=== PATIENT | female | born 1960 | race Caucasian/White ===

== ENCOUNTER 2017-05-17 12:21 | Emergency (ER) | payer BC ==
[2017-05-17 13:32] LABS: COLOR YELLOW; LEUKOCYTE ESTERASE,URINE NEGATIVE (NEGATIVE); NITRITE,URINE NEGATIVE (NEGATIVE)
[2017-05-17] MEDS ORDERED: NS 1,000 ML IV ONE (13:40)
--- NOTE | 2017-05-17 13:45 | EDPHY ---
H & P Stated Complaint: dx uti/tx macrobid and now cipro suprapubic pain/abnl vag bleeding Time Seen by Provider: 05/17/17 13:23 HPI/ROS: CHIEF COMPLAINT: Suprapubic pressure HISTORY OF PRESENT ILLNESS: Patient is a 57-year-old perimenopausal female who comes to the emergency department complaining of suprapubic pressure. She states that she began to have this sensation a week ago on Saturday when she was in [place]. She was seen at a clinic there and had a negative urinalysis other than a small amount of blood possibly contaminated from her intermittent vaginal bleeding that she thinks is part of menopause. At that time she had frequency and dysuria. She was started on Macrobid but states that her symptoms did not improve. She was seen at an urgent care in [place] on Saturday with similar symptoms and had another negative urinalysis but was switched to ciprofloxacin because her urine was "dark and smelly". She states that her dysuria and frequency have resolved but she continues to have suprapubic pressure. She saw her primary today. She has a known history of fibroids. Her primary did a pelvic exam and remarked that it was normal. Urinalysis was normal and test was normal. She is sent her for an outpatient ultrasound which could not be schedule until next week so the patient checked into the emergency department. She has not had a fever. No vomiting or diarrhea. She denies risk for STDs and states that she has been monogamous for 20 years. REVIEW OF SYSTEMS: Constitutional: denies: chills, fever, recent illness, recent injury EENTM: denies: blurred vision, double vision, nose congestion Respiratory: denies: cough, shortness of breath Cardiac: denies: chest pain, irregular heart rate, lightheadedness, palpitations Gastrointestinal/Abdominal: See HPI Genitourinary: See HPI Musculoskeletal: denies: joint pain, muscle pain Skin: denies: lesions, rash, jaundice, bruising Neurological: denies: headache, numbness, paresthesia, tingling, dizziness, weakness Hematologic/Lymphatic: denies: blood clots, easy bleeding, easy bruising Immunologic/allergic: denies: HIV/AIDS, transplant EXAM: GENERAL: Well-appearing, well-nourished and in no acute distress. HEAD: Atraumatic, normocephalic. EYES: Pupils equal round and reactive to light, extraocular movements intact, sclera anicteric, conjunctiva are normal. ENT: TMs normal, nares patent, oropharynx clear without exudates. Moist mucous membranes. NECK: Normal range of motion, supple without lymphadenopathy or JVD. LUNGS: Breath sounds clear to auscultation bilaterally and equal. No wheezes rales or rhonchi. HEART: Regular rate and rhythm without murmurs, rubs or gallops. ABDOMEN: Slight left lower quadrant and suprapubic tenderness, no organomegaly BACK: No CVA tenderness, no spinal tenderness, step-offs or deformities EXTREMITIES: Normal range of motion, no pitting or edema. No clubbing or cyanosis. NEUROLOGICAL: Cranial nerves II through XII grossly intact. Normal speech, normal gait. 5/5 strength, normal movement in all extremities, normal sensation PSYCH: Normal mood, normal affect. SKIN: Warm, dry, normal turgor, no visible rashes or lesions. Source: Patient Exam Limitations: No limitations - Personal History Current Tetanus/Diphtheria Vaccine: Unsure - Medical/Surgical History Hx Asthma: No Hx Chronic Respiratory Disease: No Hx Diabetes: No Hx Cardiac Disease: No Hx Renal Disease: No Hx Cirrhosis: No Hx Alcoholism: No Hx HIV/AIDS: No Hx Splenectomy or Spleen Trauma: No Other PMH: PMH: chronic back pain, depression; CDIFF; genital herpies; clamidia; . PSH: back [id number]; back fusion L5S1; appy; R ACL; - Family History Significant Family History: No pertinent family hx - Social History Smoking Status: Former smoker Alcohol Use: Sober Drug Use: None Constitutional: Initial Vital Signs Temperature (C) 36.9 C 05/17/17 12:47 Heart Rate 77 05/17/17 12:47 Respiratory Rate 18 05/17/17 12:47 Blood Pressure 108/72 05/17/17 12:47 O2 Sat (%) 96 05/17/17 12:47 O2 Delivery Mode Room Air Allergies/Adverse Reactions: Penicillins Allergy (Intermediate, Verified 05/17/17 12:44) Rash Sulfa (Sulfonamide Antibiotics) Allergy (Intermediate, Verified 05/17/17 12:44) eyes swell codeine [Codeine] Allergy (Mild, Verified 05/17/17 12:44) GI upset Home Medications: Medication Instructions Recorded OXYCODONE HCL 10 mg PO 02/18/14 Cipro 10/17/15 Omeprazole 10/17/15 Prozac 10 MG (*) 05/17/17 Medical Decision Making - Diagnostics Imaging Results: Imaging Impressions Pelvic/Renal Ultrasound 05/17/17 13:45 Impression: 1. Stable to minimal increase in size of left anterior subserosal uterine fibroid. 2. Mildly thickened endometrial stripe measuring about 15 mm without focal normality. This can be seen with endometrial hyperplasia or polyps. 3. No adnexal masses are appreciated. However, the ovaries were not positively identified. Findings discussed with August Lopez M.D. at 15:50 hour, 05/17/2017. Imaging: Discussed imaging studies w/ order caller Radiologist ED Course/Re-evaluation: After much discussion we agreed to order a ultrasound within a CT scan. We discussed the risks and benefits.. Will also obtain a clean catheter obtained urine sample and blood work. The patient declines pelvic exam stating that she just had 1 and is not concerned about STDs. 4:10 p.m. we discussed the ultrasound and lab results which are reassuring. The patient elected not to have a CT scan. Her abdominal exam is benign. I have paged her primary Dr. Tim to discuss. Patient would like to go home and follow up with them on Saturday. We discussed indications for returning sooner. 4:20 p.m. I discussed the case with Dorothy the nurse's Dr. Tim's office who will relay the information to Dr. Tim and ensure early follow-up. Differential Diagnosis: Partial list of the Differential diagnosis considered include but were not limited to; urinary tract infection, fibroid dysmetria , and although unlikely based on the history and physical exam, I also considered kidney stone, STD, diverticulitis, obstruction ischemia, volvulus. I discussed these differential diagnoses and the plan with the patient as well as the usual and expected course. The patient understands that the diagnosis is provisional and that in medicine we are not always correct and that further workup is often warranted. Usual and customary warnings were given. All of the patient's questions were answered. The patient was instructed to return to the emergency department should the symptoms at all worsen or return, otherwise to followup with the physician as we discussed. - Data Points Laboratory Results: Laboratory Results 05/17/17 15:20 05/17/17 15:20 05/17/17 05/17/17 05/17/17 15:20 15:20 15:20 WBC 7.84 10^3/uL 10^3/uL (3.80-9.50) RBC 4.13 10^6/uL L 10^6/uL (4.18-5.33) Hgb 13.7 g/dL g/dL (12.6-16.3) Hct 40.5 % % (38.0-47.0) MCV 98.1 fL fL (81.5-99.8) MCH 33.2 pg pg (27.9-34.1) MCHC 33.8 g/dL g/dL (32.4-36.7) RDW 12.8 % % (11.5-15.2) Plt Count 230 10^3/uL 10^3/uL (150-400) MPV 10.0 fL fL (8.7-11.7) Neut % (Auto) 79.7 % H % (39.3-74.2) Lymph % (Auto) 15.1 % % (15.0-45.0) [place] % (Auto) 4.2 % L % (4.5-13.0) Eos % (Auto) 0.3 % L % (0.6-7.6) Baso % (Auto) 0.4 % % (0.3-1.7) Nucleat RBC Rel Count 0.0 % % (0.0-0.2) Absolute Neuts (auto) 6.26 10^3/uL 10^3/uL (1.70-6.50) Absolute Lymphs (auto) 1.18 10^3/uL 10^3/uL (1.00-3.00) Absolute Monos (auto) 0.33 10^3/uL 10^3/uL (0.30-0.80) Absolute Eos (auto) 0.02 10^3/uL L 10^3/uL (0.03-0.40) Absolute Basos (auto) 0.03 10^3/uL 10^3/uL (0.02-0.10) Absolute Nucleated RBC 0.00 10^3/uL 10^3/uL (0-0.01) Immature Gran % 0.3 % % (0.0-1.1) Immature Gran # 0.02 10^3/uL 10^3/uL (0.00-0.10) Sodium 140 mEq/L mEq/L (134-144) Potassium 3.8 mEq/L mEq/L (3.5-5.2) Chloride 106 mEq/L mEq/L (97-110) Carbon Dioxide 23 mEq/l mEq/l (22-31) Anion Gap 11 mEq/L mEq/L (8-16) BUN 14 mg/dL mg/dL (7-23) Creatinine 0.7 mg/dL mg/dL (0.6-1.0) Estimated GFR > 60 Glucose 92 mg/dL mg/dL (70-100) Calcium 9.4 mg/dL mg/dL (8.5-10.4) Total Bilirubin 1.5 mg/dL H mg/dL (0.1-1.4) Conjugated Bilirubin 0.1 mg/dL mg/dL (0.0-0.5) Unconjugated Bilirubin 1.4 mg/dL H mg/dL (0.0-1.1) AST 21 IU/L IU/L (14-46) ALT 21 IU/L IU/L (9-52) Alkaline Phosphatase 35 IU/L L IU/L (38-126) Total Protein 6.8 g/dL g/dL (6.3-8.2) Albumin 3.8 g/dL g/dL (3.5-5.0) Lipase 30.0 IU/L IU/L (23-300) Beta HCG, Qual NEGATIVE Urine Color Urine Appearance Urine pH Ur Specific [place] Urine Protein Urine Ketones Urine Blood Urine Nitrate Urine Bilirubin Urine Urobilinogen Ur Leukocyte Esterase Urine RBC Urine WBC Ur Epithelial Cells Urine Mucus Urine Glucose 05/17/17 05/17/17 14:20 13:25 WBC RBC Hgb Hct MCV MCH MCHC RDW Plt Count MPV Neut % (Auto) Lymph % (Auto) [place] % (Auto) Eos % (Auto) Baso % (Auto) Nucleat RBC Rel Count Absolute Neuts (auto) Absolute Lymphs (auto) Absolute Monos (auto) Absolute Eos (auto) Absolute Basos (auto) Absolute Nucleated RBC Immature Gran % Immature Gran # Sodium Potassium Chloride Carbon Dioxide Anion Gap BUN Creatinine Estimated GFR Glucose Calcium Total Bilirubin Conjugated Bilirubin Unconjugated Bilirubin AST ALT Alkaline Phosphatase Total Protein Albumin Lipase Beta HCG, Qual Urine Color PALE YELLOW YELLOW Urine Appearance CLEAR HAZY Urine pH 7.0 5.0 (5.0-7.5) (5.0-7.5) Ur Specific [place] 1.003 1.021 (1.002-1.030) (1.002-1.030) Urine Protein NEGATIVE NEGATIVE (NEGATIVE) (NEGATIVE) Urine Ketones NEGATIVE 1+ H (NEGATIVE) (NEGATIVE) Urine Blood NEGATIVE NEGATIVE (NEGATIVE) (NEGATIVE) Urine Nitrate NEGATIVE NEGATIVE (NEGATIVE) (NEGATIVE) Urine Bilirubin NEGATIVE NEGATIVE (NEGATIVE) (NEGATIVE) Urine Urobilinogen NEGATIVE EU EU NEGATIVE EU EU (0.2-1.0) (0.2-1.0) Ur Leukocyte Esterase NEGATIVE NEGATIVE (NEGATIVE) (NEGATIVE) Urine RBC NONE SEEN /hpf /hpf (0-3) Urine WBC 1-3 /hpf /hpf (0-3) Ur Epithelial Cells TRACE /lpf /lpf (NONE-1+) Urine Mucus 4+ /lpf H /lpf (NONE-1+) Urine Glucose NEGATIVE NEGATIVE (NEGATIVE) (NEGATIVE) Medications Given: Discontinued Medications Sodium Chloride (Ns) 1,000 mls @ 0 mls/hr IV EDNOW ONE; Wide Open PRN Reason: Protocol Stop: 05/17/17 13:41 Last Admin: 05/17/17 15:15 Dose: 1,000 mls Ketorolac Tromethamine (Toradol) 30 mg IVP EDNOW ONE Stop: 05/17/17 15:25 Last Admin: 05/17/17 15:30 Dose: 30 mg Ondansetron HCl (Zofran) 4 mg IVP EDNOW ONE Stop: 05/17/17 15:25 Last Admin: 05/17/17 15:30 Dose: 4 mg Departure - Departure Disposition: Home, Routine, Self-Care Clinical Impression: Pelvic pain Condition: Fair Instructions: Pelvic Pain (ED) Referrals: Roseanne Tim MD [Primary Care Provider] - As per Instructions
[2017-05-17 14:45] LABS: MUCUS 4+ /lpf (NONE-1+); RBC,URINE NONE SEEN /hpf (0-3)
[2017-05-17 15:01] LABS: COLOR PALE YELLOW; LEUKOCYTE ESTERASE,URINE NEGATIVE (NEGATIVE); NITRITE,URINE NEGATIVE (NEGATIVE)
[2017-05-17] MEDS ORDERED: KETOROLAC 30 MG/1 ML SDV IVP ONE (15:24)
[2017-05-17] MEDS ORDERED: ONDANSETRON 4 MG/2 ML VIAL IVP ONE (15:24)
[2017-05-17 15:27] LABS: % IMMATURE GRANULYOCYTES 0.3 % (0.0-1.1); ABSOLUTE IMMATURE GRANULOCYTES 0.02 10^3/uL (0.00-0.10); ADD DIFF? NO; ADD MORPH? NO; ADD SCAN? NO; ATYPICAL LYMPHOCYTE FLAG 10 (0-99); FRAGMENT RBC FLAG 0 (0-99); HEMATOCRIT 40.5 % (38.0-47.0); HEMOGLOBIN 13.7 g/dL (12.6-16.3); LEFT SHIFT FLG 0 (0-99); LIPEMIA HEMOLYSIS FLAG 90 (0-99); MEAN CELL HEMOGLOBIN 33.2 pg (27.9-34.1); MEAN CELL HEMOGLOBIN CONCENTR. 33.8 g/dL (32.4-36.7); MEAN CELL VOLUME 98.1 fL (81.5-99.8); PLATELET CLUMPS FLAG 0 (0-99); PLATELET COUNT 230 10^3/uL (150-400); RED BLOOD CELL COUNT 4.13 10^6/uL (4.18-5.33); RED CELL DISTRIBUTION WIDTH 12.8 % (11.5-15.2)
[2017-05-17 15:48] VITALS: RESP 16; O2SAT 98
[2017-05-17 15:48] LABS: ALANINE AMINOTRANSFERASE 21 IU/L (9-52); ALBUMIN 3.8 g/dL (3.5-5.0); ALKALINE PHOSPHATASE 35 IU/L (38-126); ANION GAP 11 mEq/L (8-16); ASPARTATE AMINOTRANSFERASE 21 IU/L (14-46); BILIRUBIN,TOTAL 1.5 mg/dL (0.1-1.4); BILIRUBIN-CONJUGATED 0.1 mg/dL (0.0-0.5); BILIRUBIN-UNCONJUGATED 1.4 mg/dL (0.0-1.1); CALCIUM 9.4 mg/dL (8.5-10.4); CARBON DIOXIDE 23 mEq/l (22-31); CHLORIDE 106 mEq/L (97-110); CREATININE 0.7 mg/dL (0.6-1.0); GLOMERULAR FILTRATION RATE > 60; GLUCOSE 92 mg/dL (70-100); POTASSIUM 3.8 mEq/L (3.5-5.2); SODIUM 140 mEq/L (134-144); TOTAL PROTEIN 6.8 g/dL (6.3-8.2)
[2017-05-17 16:14] VITALS: BP 118/72; PULSE 71; TEMP 97.7
== END 2017-05-17 16:29 | disposition home or self-care (01) ==
DX: R10.2 Pelvic and perineal pain (principal); E86.9 Volume depletion, unspecified; Z87.891 Personal history of nicotine dependence
CPT/HCPCS: 96374; J1885; J2405

== ENCOUNTER → 2018-07-01 | Outpatient (CLI) | payer BC ==
[~2018-07-01] MED LIST: IOPAMIDOL (ISOVUE-300) 150 ML BTL ONE
== END ==
LOC: FIMAGING 14:55
PROVIDERS: ATTEND Physician Assistant Medical
DX: N28.1 Cyst of kidney, acquired (principal); N13.30 Unspecified hydronephrosis; K59.00 Constipation, unspecified
CPT/HCPCS: Q9967

== ENCOUNTER → 2018-07-07 | Outpatient (CLI) | payer BC ==
[~2018-07-07] MED LIST changes: -IOPAMIDOL (ISOVUE-300) 150 ML BTL ONE; +LIDOCAINE 1% 300 MG/30 ML SDV ONE
[2018-07-07 12:47] LABS: INR 1.05 (0.83-1.16); PROTIME(PATIENT) 13.9 SEC (12.0-15.0)
== END ==
LOC: FIMAGING 11:54
PROVIDERS: ATTEND Specialist
PROC: 0T903ZZ Drainage of Right Kidney, Percutaneous Approach (ICD-10-PCS; principal; 2018-07-07)
DX: N28.89 Other specified disorders of kidney and ureter (principal)

== ENCOUNTER → 2018-08-19 | Outpatient (CLI) | payer BC ==
[~2018-08-19] MED LIST changes: +BENZOCAINE UNIT DOSE SPRAY HURRICAINE MM ONE; +IOTHALAMATE MEG (CYSTO-CONRAY II) 250 ML VIAL BLADIN ONE; -LIDOCAINE 1% 300 MG/30 ML SDV ONE
== END ==
LOC: FIMAGING 09:40
PROVIDERS: ATTEND Family Medicine
DX: N13.70 Vesicoureteral-reflux, unspecified (principal); Z87.440 Personal history of urinary (tract) infections
CPT/HCPCS: Q9961

== ENCOUNTER → 2018-10-21 | Outpatient (CLI) | payer BC | LOC: FIMAGING 08:44 | DX: Z01.811 Encounter for preprocedural respiratory examination (principal); N28.1 Cyst of kidney, acquired ==